=== PATIENT | female | born 1990 | race Caucasian/White ===

== ENCOUNTER 2020-05-26 00:01 | Emergency (ER) | payer OTHER ==
[~2020-05-26] VITALS: Ht 154.9 cm; Wt 78.5 kg
[2020-05-26 02:46] LABS: MICROSCOPIC AUTO
--- NOTE | 2020-05-26 04:44 | NUR ---
Jaleel williamson in [facility] - 05/26/20 at 0444 by CHRIS NOT IN [facility]
--- NOTE | 2020-05-26 04:46 | NUR ---
PT AMBULATED BACK TO ROOM WITH A SMOOTH AND STEADY GAIT. PT REPORTS THINKING SHE HAD A YEAST INFECTION A FEW DAYS AGO, USED MONOSTAT LAST NIGHT AND BURNING IS WORSENING. PT REPORTS BURNING UPON URINATION AND IN GENERAL. PT ALSO REPORTS LIGHT SPOTTING. DENIES ABDOMINAL PAIN OR CRAMPING, DENIES N/V. PT GROSS NEURO INTACT. WCTM PT PLACED ON SPO2/BP MONITORING. WCTM.
--- NOTE | 2020-05-26 05:35 | NUR ---
pt resting on gurney. NAD. appears comfortable, given ice water for comfort, given additional warm blankets for comfort, pelvic exam complete. pt tolerated well, samples walked to lab, waiting for results. keisha.
[2020-05-26 05:50] LABS: CLUE CELLS NONE SEEN (NONE SEEN); WET PREP WBCS MODERATE (FEW)
[2020-05-26 05:57] LABS: HCG UR SG 1.021 (1.003-1.030)
--- NOTE | 2020-05-26 05:59 | NUR ---
PATIENT given discharge instructions and they have confirmed that they understand the instructions. Patient ambulatory with steady gait. NAD, VSS, DENIES ADDITIONAL QUESTIONS OR NEEDS AT THIS TIME. NO BELONGINGS LEFT IN ROOM AFTER DC.
[2020-05-26 06:09] VITALS: BP 115/77
== END 2020-05-26 06:12 | disposition home or self-care (01) ==
LOC: ED 00:31
DX: N76.0 Acute vaginitis (principal); R10.2 Pelvic and perineal pain
CPT/HCPCS: 81001; 81025; 87210; 87491; 87591; 87808; 99284

== ENCOUNTER → 2020-06-22 | Outpatient (CLI) | payer OTHER | END | disposition home or self-care (01) | LOC: RAD 11:05 | PROVIDERS: ATTEND Family Medicine | DX: N85.4 Malposition of uterus (principal); N89.8 Other specified noninflammatory disorders of vagina; N93.8 Other specified abnormal uterine and vaginal bleeding | CPT/HCPCS: 76830 ==

== ENCOUNTER 2020-06-30 11:01 | Emergency (ER) | payer OTHER ==
[~2020-06-30] VITALS: Ht 154.9 cm; Wt 77.1 kg
[2020-06-30] MEDS ORDERED: ONDANSETRON ODT 4 MG PO ONE (11:30)
[2020-06-30 11:56] LABS: MICROSCOPIC NOT IND
[2020-06-30 11:58] LABS: BASOPHILS % (AUTO) 1 % (0-1); EOSINOPHILS % (AUTO) 1 % (1-7); LYMPHOCYTES % (AUTO) 29 % (22-44); MEAN CORPUSCULAR HEMOGLOBIN 29.1 pg (27.0-34.8); MEAN CORPUSCULAR HGB CONC 32.9 g/dL (32.4-35.8); MEAN PLATELET VOLUME 7.4 fL (7.4-10.4); MONOCYTES % (AUTO) 6 % (2-9); NEUTROPHILS % (AUTO) 63 % (42-75); PLATELET COUNT 350 x10^3/uL (130-400); RED BLOOD COUNT 5.01 x10^6/uL (3.82-5.3); RED CELL DISTRIBUTION WIDTH 13.4 % (9.6-15.2)
[2020-06-30 12:04] LABS: ALBUMIN 3.9 g/dL (3.4-5.0); ANION GAP 6 mmol/L (5-15); CALCIUM 8.8 mg/dL (8.5-10.1); CHLORIDE 111 mmol/L (98-107); CREATININE 0.83 mg/dL (0.55-1.02)
[2020-06-30 12:09] LABS: MD NO
[2020-06-30] MEDS ORDERED: ONDANSETRON ODT 4 MG ONE (14:03)
[2020-06-30] MEDS ORDERED: DIPH25CA61 PO (14:06)
[2020-06-30] MEDS ORDERED: CRAN500C PO (14:07)
[2020-06-30] MEDS ORDERED: FLUT9.9S NAS (14:07)
[2020-06-30] MEDS ORDERED: LACT1CAP43 PO (14:08)
[2020-06-30 14:21] VITALS: BP 116/74
[2020-06-30 14:24] LABS: CLUE CELLS NONE SEEN (NONE SEEN); WET PREP WBCS FEW (FEW)
--- NOTE | 2020-06-30 14:36 | NUR ---
report from carlos bedoya. as
[2020-06-30] MEDS ORDERED: FLUCONAZOLE 100 MG TABLET PO ONE (15:00)
[2020-06-30] MEDS ORDERED: FLUCONAZOLE 100 MG TABLET ONE (15:00)
== END 2020-06-30 15:19 | disposition home or self-care (01) ==
LOC: ED 11:46
DX: B37.3 Candidiasis of vulva and vagina (principal); R10.2 Pelvic and perineal pain; R30.0 Dysuria; R11.2 Nausea with vomiting, unspecified; R53.83 Other fatigue; N89.8 Other specified noninflammatory disorders of vagina
CPT/HCPCS: 36415; 80048; 81003; 82040; 84703; 85025; 87210; 87491; 87591; 87808; 99284; Q0162